=== PATIENT | male | born 1990 | race Caucasian/White ===

== ENCOUNTER 2017-02-05 23:10 | Emergency (ER) | payer OTHER ==
[~2017-02-05 23:10] MED LIST: MOTRIN800 MG PO
[2017-02-05] MEDS ORDERED: PROMETH-CODEIN 65 ML PO (23:35)
[2017-02-05] MEDS ORDERED: DOXYCYCLINE MO100 M1 PO (23:36)
[2017-02-06] MEDS ORDERED: LEVAQUIN750 M1 PO (00:35)
[2017-02-06] MEDS ORDERED: GUAIFENESIN-COD10 ML PO (00:35)
[2017-02-07] MEDS ORDERED: LEVAQUIN750 M1 PO (16:57)
[2017-02-07] MEDS ORDERED: VIRTUSSIN AC L118 ML PO (16:59)
[2017-02-07] MEDS ORDERED: PHENERGAN12.5 M2 PR (17:00)
== END 2017-02-06 00:47 ==
LOC: EDMED 23:10
DX: J18.0 Bronchopneumonia, unspecified organism (principal); Z88.0 Allergy status to penicillin

== ENCOUNTER 2017-02-07 16:43 | Inpatient (IN) | payer OTHER ==
[~2017-02-07 16:43] MED LIST changes: +DOXYCYCLINE MO100 M1 PO; +GUAIFENESIN-COD10 ML PO; +LEVAQUIN750 M1 PO; +PROMETH-CODEIN 65 ML PO
[2017-02-07] MEDS ORDERED: LEVAQUIN750 M1 PO (16:57)
[2017-02-07] MEDS ORDERED: VIRTUSSIN AC L118 ML PO (16:59)
[2017-02-07] MEDS ORDERED: PHENERGAN12.5 M2 PR (17:00)
[2017-02-07 17:57] LABS: BASO % 0.2 % (0-2); EOS % 0.3 % (0-7); HCT-HEMATOCRIT 35.9 % (36.0-53.5); HGB-HEMOGLOBIN 12.7 gm/dl (13.5-17.0); IMMATURE GRANULOCYTES ABSOLUTE 0.03 tho/cmm (0-0.03); IMMATURE GRANULOCYTES PERCENT 0.3 % (0-0.3); LYMPH % 19.4 % (20-45); LYMPH ABSOLUTE COUNT 1.9 tho/cmm (0.8-4.5); MCH (MEAN CORPUSCULAR HGB) 28.3 pg (28.0-32.0); MCHC MEAN CORPUSCULAR HGB CONC 35.4 % (32.0-36.0); MCV (MEAN CELL VOLUME) 80.1 fl (82.0-96.0); MONOCYTE ABSOLUTE COUNT 0.9 tho/cmm (0.0-1.2); NEUTROPHIL ABSOLUTE COUNT 6.8 tho/cmm (1.6-8.0); NEUTROPHIL-AUTOMATED 6.8 tho/cmm (1.6-8.0); NEUTROPHILS % 70.8 % (40-80); PLATELET COUNT 192 tho/cmm (150-450); RED BLOOD COUNT 4.48 mil/cmm (4.40-5.70); WHITE BLOOD COUNT 9.6 tho/cmm (4.0-10.0)
[2017-02-07 18:17] LABS: ALB/GLOB RATIO 0.5 (0.8-2.0); ALBUMIN 2.9 g/dl (3.5-5.0); ALKALINE PHOSPHATASE 105 U/L (33-138); ALT/SGPT 27 U/L (12-78); ANION GAP 16 mmol/L (0-20); AST/SGOT 26 U/L (10-40); BILIRUBIN,TOTAL 0.6 mg/dl (0.0-1.5); BLOOD UREA NITROGEN 10 mg/dl (6-24); CALCIUM 8.7 mg/dl (8.5-10.5); CARBON DIOXIDE-VENOUS 24 mmol/L (22-32); CHLORIDE 96 mmol/l (96-110); CREATININE 1.31 mg/dl (0.60-1.30); GLUCOSE 106 mg/dL (70-110); POTASSIUM 3.9 mmol/L (3.7-5.1); SODIUM 132 mmol/L (135-145); eGFR VALUE FOR BLACK 88 mL/Min
[2017-02-07 18:19] LABS: C-REACTIVE PROTEIN 20.3 mg/dl (0-0.9)
[2017-02-07 21:18] LABS: URINE BILIRUBIN NEGATIVE (NEG); URINE BLOOD SMALL (NEG); URINE GLUCOSE (UA) NEGATIVE (NEG); URINE KETONE NEGATIVE (NEG); URINE LEUKOCYTE ESTERASE NEGATIVE (NEG); URINE NITRITE NEGATIVE (NEG); URINE PH 6.5 (5.0-8.0); URINE PROTEIN NEGATIVE (NEG); URINE SPECIFIC GRAVITY 1.005 (1.003-1.030)
[2017-02-07 21:19] LABS: URINE APPEARANCE SLIGHTLY HAZY; URINE COLOR YELLOW
[2017-02-07 21:24] LABS: URINE EPITHELIAL CELLS 0 /[HPF] (0-10); URINE WBC 0 /[HPF] (0-5)
[2017-02-08 06:38] LABS: BASO % 0.2 % (0-2); EOS % 0.6 % (0-7); EOSINOPHIL ABSOLUTE COUNT 0.1 tho/cmm (0.0-0.7); HGB-HEMOGLOBIN 11.1 gm/dl (13.5-17.0); IMMATURE GRANULOCYTES ABSOLUTE 0.03 tho/cmm (0-0.03); IMMATURE GRANULOCYTES PERCENT 0.3 % (0-0.3); LYMPH % 20.3 % (20-45); LYMPH ABSOLUTE COUNT 1.9 tho/cmm (0.8-4.5); MCHC MEAN CORPUSCULAR HGB CONC 34.7 % (32.0-36.0); MCV (MEAN CELL VOLUME) 80.8 fl (82.0-96.0); MEAN PLATELET VOLUME 12.1 cmc (9.4-12.4); MONO % 12.2 % (0-12); MONOCYTE ABSOLUTE COUNT 1.1 tho/cmm (0.0-1.2); NEUTROPHIL ABSOLUTE COUNT 6.2 tho/cmm (1.6-8.0); NEUTROPHIL-AUTOMATED 6.2 tho/cmm (1.6-8.0); NEUTROPHILS % 66.4 % (40-80); PLATELET COUNT 177 tho/cmm (150-450); RED BLOOD COUNT 3.96 mil/cmm (4.40-5.70); RED CELL DISTRIBUTION WIDTH 12.2 % (12.4-16.4); WHITE BLOOD COUNT 9.4 tho/cmm (4.0-10.0)
[2017-02-08 06:53] LABS: ALB/GLOB RATIO 0.5 (0.8-2.0); ALBUMIN 2.5 g/dl (3.5-5.0); ALKALINE PHOSPHATASE 95 U/L (33-138); ALT/SGPT 21 U/L (12-78); ANION GAP 12 mmol/L (0-20); AST/SGOT 18 U/L (10-40); BILIRUBIN,TOTAL 0.5 mg/dl (0.0-1.5); BLOOD UREA NITROGEN 8 mg/dl (6-24); CALCIUM 8.4 mg/dl (8.5-10.5); CARBON DIOXIDE-VENOUS 24 mmol/L (22-32); CHLORIDE 103 mmol/l (96-110); CREATININE 0.97 mg/dl (0.60-1.30); GLUCOSE 101 mg/dL (70-110); POTASSIUM 3.8 mmol/L (3.7-5.1); SODIUM 135 mmol/L (135-145); eGFR VALUE FOR BLACK >90 mL/Min
[2017-02-08 16:23] LABS: BAL APPEARANCE CLOUDY (CLEAR)
[2017-02-08 16:43] LABS: BAL COLOR COLORLESS (COLORLESS)
[2017-02-08 18:29] LABS: IRON 16 ug/dl (49-181); IRON BINDING CAPACITY 118 ug/dl (250-450)
[2017-02-08 19:51] LABS: BAL LYMPHOCYTES 5 %; BAL NEUTROPHILS 13 %
[2017-02-10] MEDS ORDERED: POTASSIUM CHLO20 ME3 PO (07:48)
[2017-02-12 05:09] LABS: BASO % 0.1 % (0-2); EOS % 0.1 % (0-7); HCT-HEMATOCRIT 35.7 % (36.0-53.5); HGB-HEMOGLOBIN 12.2 gm/dl (13.5-17.0); IMMATURE GRANULOCYTES ABSOLUTE 0.08 tho/cmm (0-0.03); IMMATURE GRANULOCYTES PERCENT 0.6 % (0-0.3); LYMPH ABSOLUTE COUNT 1.6 tho/cmm (0.8-4.5); MCHC MEAN CORPUSCULAR HGB CONC 34.2 % (32.0-36.0); MCV (MEAN CELL VOLUME) 81.9 fl (82.0-96.0); MEAN PLATELET VOLUME 11.2 cmc (9.4-12.4); MONO % 5.1 % (0-12); MONOCYTE ABSOLUTE COUNT 0.6 tho/cmm (0.0-1.2); NEUTROPHIL ABSOLUTE COUNT 10.2 tho/cmm (1.6-8.0); NEUTROPHIL-AUTOMATED 10.2 tho/cmm (1.6-8.0); NEUTROPHILS % 81.1 % (40-80); PLATELET COUNT 330 tho/cmm (150-450); RED BLOOD COUNT 4.36 mil/cmm (4.40-5.70); WHITE BLOOD COUNT 12.6 tho/cmm (4.0-10.0)
[2017-02-12 05:17] LABS: ANION GAP 13 mmol/L (0-20); BLOOD UREA NITROGEN 11 mg/dl (6-24); CALCIUM 8.6 mg/dl (8.5-10.5); CARBON DIOXIDE-VENOUS 26 mmol/L (22-32); CHLORIDE 102 mmol/l (96-110); CREATININE 0.76 mg/dl (0.60-1.30); GLUCOSE 120 mg/dL (70-110); POTASSIUM 4.7 mmol/L (3.7-5.1); SODIUM 136 mmol/L (135-145); eGFR VALUE FOR BLACK >90 mL/Min
[2017-02-12] MEDS ORDERED: NORCO 5-325 TA1 EACH PO (17:20)
== END 2017-02-12 18:18 | DRG 166 ==
LOC: EDMED 16:43 → EMR2 21:04 → CCU 23:00 → 5WF 02-08 22:07 → ORW 02-11 15:05 → 5WF 02-11 18:34
PROVIDERS: Hospitalist; Internal Medicine; Internal Medicine Pulmonary Disease; Nurse Practitioner Family; ADMIT Internal Medicine
PROC: 07B74ZX Excision of Thorax Lymphatic, Percutaneous Endoscopic Approach, Diagnostic (ICD-10-PCS; principal; 2017-02-08)
PROC: 0B948ZX Drainage of Right Upper Lobe Bronchus, Via Natural or Artificial Opening Endoscopic, Diagnostic (ICD-10-PCS; 2017-02-08)
PROC: 07B74ZX Excision of Thorax Lymphatic, Percutaneous Endoscopic Approach, Diagnostic (ICD-10-PCS; 2017-02-11)
DX: J84.10 Pulmonary fibrosis, unspecified (principal); J18.9 Pneumonia, unspecified organism; J98.59 Other diseases of mediastinum, not elsewhere classified; N17.9 Acute kidney failure, unspecified; R04.2 Hemoptysis; E87.1 Hypo-osmolality and hyponatremia; E44.1 Mild protein-calorie malnutrition; B39.9 Histoplasmosis, unspecified; B34.8 Other viral infections of unspecified site; D50.9 Iron deficiency anemia, unspecified; Z88.0 Allergy status to penicillin; Z88.8 Allergy status to other drugs, medicaments and biological substances; R62.7 Adult failure to thrive; Z68.21 Body mass index [BMI] 21.0-21.9, adult; R59.0 Localized enlarged lymph nodes; Z87.891 Personal history of nicotine dependence; D86.9 Sarcoidosis, unspecified
CPT/HCPCS: G0009; J0692; J0696; J2250; J2270; J3370; J7030; J7040; J7050; Q9967